=== PATIENT | male | born 1990 | race Caucasian/White ===

== ENCOUNTER → 2021-01-14 13:48 | Outpatient (CLI) | payer BC ==
--- NOTE | ~2021-01-14 | ST ---
PATIENT:LOUIE CARR MEDICAL RECORD: [id number] SEX: M LOCATION:[facility] ORDER #: ADMISSION DATE: 01/14/21 AGE OF PATIENT: 30 REFERRING PHYSICIAN: INTERPRETING PHYSICIAN: MAINE ARTHUR MD DATE OF SERVICE: 01/14/2021 REGULAR TREADMILL STRESS TEST Baseline ECG is normal. Exercised for 10 minutes on [place] protocol. Maximum heart rate 150 beats per minute, greater than 85% predicted. No ECG changes of ischemia. No symptoms of ischemia. Normal blood pressure response to exercise. No arrhythmia is noted. Good exercise tolerance for age. TRANSINT:[id number] Voice Confirmation ID: [id number] DOCUMENT ID: [id number] MAINE ARTHUR MD CC: [id number] DICTATION DATE: 01/15/21 1152 OLD COIN DEALER: 01/16/21 044 DEP CLI 01/14/21 [id number] [place] [address]
--- NOTE | ~2021-01-14 | EC ---
PATIENT:LOUIE CARR DATE OF SERVICE: 01/14/21 SEX: M MEDICAL RECORD: [id number] DATE OF : [birth year] [facility] AGE OF PATIENT: 30 ADMISSION DATE: 01/14/21 REFERRING PHYSICIAN: INTERPRETING PHYSICIAN: MAINE ARTHUR MD ECHOCARDIOGRAM REPORT ECHO CHARGES 4 ECHO COMPLETE Date: 01/14/21 CLINICAL DIAGNOSIS: CHEST PAIN/HX OF HTN AND STRONG FAMILY HX OF CAD ECHOCARDIOGRAPHIC MEASUREMENTS (adult normal given) AC root (d.<3.7cm) 3.4 cm LV Septum d (<1.2 cm> 1.5 cm Valve Excursion 2.0 cm LV Septum (systole) 1.9 cm Left Atria (s.<4.0cm> 4.4 cm LVPW d(<1.2cm) 1.8 cm RV (d.<2.3cm) 4.3 cm LVPW (sytole) 2.0 cm LV diastole(<5.6CM) 5.4 cm MV E-F(>70mm/sec) cm LV systole 3.2 cm LVOT Diameter 2.1 cm MV exc.(>10mm) 2.2 cm Est.ejection fraction (50-75%) % DOPPLER: LVIT cm/sec A 42.0 cm/sec E 74.0 cm/sec LA cm/sec RVSP 20 mmHg LVOT 90 cm/sec AOP1/2T m/s Asc. Ao 116 cm/sec RVOT 73 cm/sec RA cm/sec PA 117 cm/sec AV Gradient Peak 5.39 mmHg AV Mean 2.68 mmHg AV Area 2.7 cm MV Gradient Peak 4.13 mmHg MV Mean 1.44 mmHg MV Area cm COMMENTS: Cupola Liner Helper: 2 MARLO GILLESPIE Spotter: 3 Dr. Sandoval TAPE# PACS Pericardial Effusion N DATE OF SERVICE: 01/14/2021 Adequate 2D, color-flow imaging, spectral Doppler, and M-Mode. FINDINGS: LVH is present. LV internal dimensions are normal. Wall motion is normal. EF is greater than or equal to 55%. Aortic valve is tricuspid. No evidence of stenosis by Doppler interrogation. Left atrium is mildly dilated at 43.4 cm. Mitral valve shows no prolapse. Trace MR. Right side is grossly normal. Trace TR. TRANSINT:[id number] Voice Confirmation ID: [id number] DOCUMENT ID: [id number] ECHOCARDIOGRAM REPORT [id number] LOUIE CARR GREGORY A MD CC: [id number] DICTATION DATE: 01/14/211517 SLICE CUTTING MACHINE OPERATOR HELPER: 01/14/212201 [facility] [address] [id number]
== END | disposition home or self-care (01) ==
LOC: D.HCCECHO 13:48
PROVIDERS: ATTEND Internal Medicine Interventional Cardiology
DX: R07.9 Chest pain, unspecified (principal)